=== PATIENT | male | born 1940 | race Caucasian/White ===

== ENCOUNTER → 2017-02-13 | Outpatient (CLI) | payer OTHER, MEDICARE ==
[2017-02-13 13:32] LABS: RATIO 96.5 mcg/mg (0-30.0)
[2017-02-13 13:37] LABS: ALT/SGPT 23 U/L (12-78); BLOOD UREA NITROGEN 37 mg/dl (7-18); BUN/CREATININE RATIO 22.8 (10-20); CALCIUM 9.5 mg/dl (8.5-10.1); CARBON DIOXIDE 24 mmol/L (21-32); CHLORIDE 104 mmol/L (98-107); CHOLESTEROL 137 mg/dl (0-200); GLUCOSE 96 mg/dl (70-99); POTASSIUM 4.3 mmol/L (3.5-5.1); SODIUM 135 mmol/L (136-145); TRIGLYCERIDES 100 mg/dl (0-150); VERY LOW DENSITY LIPOPROT CALC 20 mg/dl
[2017-02-13 13:41] LABS: ESTIMATED AVERAGE GLUCOSE 111 mg/dl; HA1C FLAG Normal (Normal)
[2017-02-13 13:42] LABS: ALB/GLOB RATIO 1.3 (0.9-2); ALKALINE PHOSPHATASE 59 U/L (45-117); AST/SGOT 15 U/L (15-37); CHOLESTEROL/HDL RATIO 3.4; HDL CHOLESTEROL 40 mg/dl; LDL CHOLESTEROL CALCULATED 77 mg/dl
== END | disposition home or self-care (01) ==
LOC: C.LABMFLN 08:25
PROVIDERS: ATTEND Family Medicine
DX: I10 Essential (primary) hypertension (principal); E11.21 Type 2 diabetes mellitus with diabetic nephropathy

== ENCOUNTER → 2017-04-29 | Outpatient (CLI) | payer OTHER, MEDICARE ==
[2017-04-29 13:56] LABS: BLOOD UREA NITROGEN 18 mg/dl (7-18); BUN/CREATININE RATIO 17.7 (10-20); CALCIUM 9.9 mg/dl (8.5-10.1); CARBON DIOXIDE 26 mmol/L (21-32); CHLORIDE 103 mmol/L (98-107); GLUCOSE 105 mg/dl (70-99); POTASSIUM 4.1 mmol/L (3.5-5.1); SODIUM 139 mmol/L (136-145)
== END | disposition home or self-care (01) ==
LOC: C.LABMFLN 08:23
PROVIDERS: ATTEND Family Medicine
DX: I10 Essential (primary) hypertension (principal); N28.9 Disorder of kidney and ureter, unspecified

== ENCOUNTER 2017-07-15 07:49 | Day surgery (SDC) | payer OTHER, MEDICARE ==
[2017-07-01 13:33] VITALS: BMI 23.0
[2017-07-01 13:45] LABS: BASO % 0.4 %; BASO ABS # 0.02 K/uL (0-0.2); COMPLETE YES; HEMATOCRIT 38.4 % (42-52); IG% 0.2 %; LYMPH % 43.1 %; LYMPH ABS # 2.42 K/uL (1.2-3.4); MEAN CELL VOLUME 87.9 fL (80-100); MEAN CORPUSCULAR HEMOGLOBIN 29.7 pg (25-34); MEAN CORPUSCULAR HGB CONC 33.9 g/dl (32-36); MEAN PLATELET VOLUME 9.4 fL (7.4-10.4); MONO % 8.7 %; NEUT % 45.6 %; PLATELET COUNT 183 K/uL (130-400); RED BLOOD COUNT 4.37 M/uL (4.7-6.1); WHITE BLOOD COUNT 5.62 K/uL (4.8-10.8)
--- NOTE | 2017-07-01 13:55 | PAT Medication Instructions ---
Service Date Jul 01, 2017. Current Home Medication List Dutasteride (Avodart), 0.5 MG PO QAM Ferrous Sulfate (Kp Ferrous Sulfate), 1 TAB PO QDL Lisinopril (Zestril), 20 MG PO QAM Metformin Hcl (Glucophage), 1,000 MG PO BID Tamsulosin HCl (Tamsulosin HCl), 1 TAB PO QPM Vitamin B Complex (Vitamin B Complex), 1 TAB PO QPM Medication Instructions For Your Scheduled Surgery - Hold the following medications 48 hours prior to surgery: Metformin Hcl (Glucophage), 1,000 MG PO BID - Hold the following medications the morning of surgery: Lisinopril (Zestril), 20 MG PO QAM - Take the following medications the morning of surgery with a sip of water: Dutasteride (Avodart), 0.5 MG PO QAM - Take the following medications as scheduled the night before surgery: Tamsulosin HCl (Tamsulosin HCl), 1 TAB PO QPM Vitamin B Complex (Vitamin B Complex), 1 TAB PO QPM Ferrous Sulfate (Kp Ferrous Sulfate), 1 TAB PO QDL If you have any questions please call us at [phone] or [phone] or [phone]
[2017-07-01 14:26] LABS: MANUAL MICROSCOPIC REQUIRED? NO; REVIEW REQ? NO; URINE APPEARANCE CLEAR (CLEAR); URINE BILIRUBIN NEG (NEG); URINE COLOR YELLOW; URINE NITRITE NEG (NEG); URINE SPECIFIC GRAVITY 1.016 (1.000-1.030); UROBILINOGEN NEG (NEG)
--- NOTE | 2017-07-01 15:08 | DIAGNOSTIC IMAGING REPORT ---
CHEST 2 VIEWS ROUTINE CLINICAL HISTORY: PAT preoperative evaluation COMPARISON STUDY: No previous studies for comparison. FINDINGS: The bones soft tissues and hemidiaphragms are normal. The cardiomediastinal silhouette is normal. The lungs are clear. The pulmonary vasculature is normal. Several scattered calcified granulomas are noted. IMPRESSION: No acute process. The above report was generated using voice recognition software. It may contain grammatical, syntax or spelling errors. Electronically signed by: Frank Patterson M.D. 07/01/2017 3:06 PM Dictated Date/Time: 07/01/2017 3:06 PM
[2017-07-01 15:18] LABS: CALCIUM 9.1 mg/dl (8.5-10.1); POTASSIUM 4.3 mmol/L (3.5-5.1)
[~2017-07-15] VITALS: Ht 170.2 cm; Wt 67.6 kg
[~2017-07-15 07:49] MED LIST: ATROPINE SULFATE 0.1 MG/ML 5ML SYR IV PRN; CIPROFLOXACIN / D5W 400 MG IV SCH; DUTA0.5C PO; EpHEDrine SULFATE INJ 50 MG/ML AMP IV PRN; FENTANYL CITRATE INJ 50 MCG/1 ML 2 ML VIAL IV PRN; FERR1TAB13 PO; FLM4 PO; LACTATED RINGER'S 1000ML 1,000 ML IV SCH; LISI-725 PO; METF-384 PO; ONDANSETRON INJ 2 MG/ML 2 ML VIAL IV PRN; VITBC PO
[2017-07-15 08:30] VITALS: BP 164/74; PULSE 92; TEMP 36.5; O2SAT 99; Ht 170.2 cm; Wt 67.6 kg
--- NOTE | 2017-07-15 09:19 | History & Physical Bridge Note ---
H&P Re-Evaluation Bridge Note: I have examined the patient, reviewed the History & Physical and in the interval since the performance of the History & Physical I have noted the following changes of clinical significance: No changes noted
[2017-07-15] MEDS ORDERED: CONRAY 30% 150ML BOTTLE ONE (09:29)
[2017-07-15] MEDS ORDERED: LIDOCAINE HCL 2% 2 ML VIAL (20MG/ML) ONE (09:31)
[2017-07-15] MEDS ORDERED: FENTANYL CITRATE INJ 50 MCG/1 ML 2 ML VIAL ONE (09:31)
[2017-07-15] MEDS ORDERED: PROPOFOL IV EMULSION 10 MG/ML 20 ML VIAL IV ONE (09:31)
[2017-07-15] MEDS ORDERED: PHENYLEPHRINE 100MCG/ML 5ML SYR ONE (09:54)
[2017-07-15] MEDS ORDERED: ONDANSETRON INJ 2 MG/ML 2 ML VIAL ONE (09:54)
[2017-07-15] MEDS ORDERED: EpHEDrine SULFATE 50MG/5ML SYR ONE (10:00)
[2017-07-15] MEDS ORDERED: PHEN-876 PO (13:12)
[2017-07-15] MEDS ORDERED: OXYC-57 PO (13:12)
--- NOTE | 2017-07-15 13:13 | Discharge Instructions ---
Discharge Instructions Date of Service Jul 15, 2017. Visit Reason for Visit: Bladder Stone Discharge Discharge Diagnosis / Problem: Bladder Stone Discharge Goals Goal(s): Therapeutic intervention Activity Recommendations Activity Limitations: resume your previous activity (take ir easy today) Exercise/Sports Limitations: rest today Shower/Bathe: no limitations Driving or Machine Use: resume 1 day after discharge Anesthesia . Post Anesthesia Instructions: If you have had General Anesthesia or IV Sedation: * Do not drive today. * Resume driving when surgeon permits. * Do not make important decisions or sign legal documents today. * Call surgeon for: 1. Temperature elevations greater than 101 degrees F. 2. Uncontrollable pain. 3. Excessive bleeding. 4. Persistent nausea and vomiting. 5. Medication intolerance (nausea, vomiting or rash). * For nausea and vomiting use only clear liquids such as: tea, soda, bouillon until nausea subsides, then gradually increase diet as tolerated. * If you have any concerns or questions, call your surgeon's office. If physician is unavailable and it is an emergency, call 911 or go to the nearest emergency room. . Diet Recommendations Recommended Home Diet: resume previous diet Procedures Procedures Performed: Meatal Dilation, Cystolithopaxy Pending Studies Studies pending at discharge: no Medical Emergencies . Who to Call and When: Medical Emergencies: If at any time you feel your situation is an emergency, please call 911 immediately. . Non-Emergent Contact Non-Emergency issues call your: Urologist Call Non-Emergent contact if: temperature is above 101.5 . . "Provider Documentation" section prepared by Zen Lino. . [place] Drug Monitoring Program Search Results: patient reviewed within database
[2017-07-15] MEDS ORDERED: OXYCODONE/ACETAMINOPHEN 5-325 TAB PO PRN (13:15)
--- NOTE | 2017-07-15 13:34 | [facility] Operative Report ---
Operative Report Operative Date Jul 15, 2017. Pre-Operative Diagnosis Bladder Calculus Post-Operative Diagnosis Bladder Calculus Procedure(s) Performed Meatal Dilation, Cystolithopaxy Surgeon Dr. Lino Lifeguard Surgeon(s) none Estimated Blood Loss 3 cc Findings Cystoscopic exam showed a normal anterior urethra prostatic fossa was moderately obstructing with kissing lateral lobes and elevated median lobe bladder showed some edema from a lissette stone calculus the stone was very large and very dense was also 1-2+ trabeculation Specimens none per surgeon Drains none Anesthesia Gen. Complication(s) None Disposition Recovery Room / PACU Indications 76-year-old white male on evaluation for hematuria was found to have a large bladder stone. He is being brought in for cystolitholapaxy Description of Procedure After the induction of an adequate general anesthetic and appropriate timeout patient was placed in the dorsolithotomy position. Lower abdomen genitalia were prepped with Hibiclens draped in sterile fashion. Fossa navicularis was dilated to 28 Canadian with sounds. Routine cystoscopic exam was performed the above-noted findings. Next using a 24 Canadian resectoscope and laser bridge and 1000 holmium laser fiber the stone was fragmented into multiple small pieces. The stone was very dense and the fragmentation took a long time. After fragmenting the stone and evacuating the fragments with an Purchext evacuator bladder was reinspected. There were no sizable fragments left there was some stone dust remaining there was no injury to the bladder. Patient's bladder was then drained resections, which is removed all needle sponges counts were correct at the end of the case. Patient tolerated the procedure was taken recovery room in stable condition I attest to the content of the Intraoperative Record and any orders documented therein. Any exceptions are noted below.
--- NOTE | 2017-07-15 13:41 | Anesthesiology Progress Note ---
Anesthesia Post Op Note Date & Time Jul 15, 2017 at 13:41 Vital Signs Pain Intensity: 0 Vital Signs Past 12 Hours Date Time Temp Pulse Resp B/P (MAP) Pulse Ox O2 Delivery O2 Flow Rate FiO2 07/15/17 13:30 85 17 138/71 100 Oxymask 10 07/15/17 13:20 87 19 145/82 100 Oxymask 10 07/15/17 13:10 36.0 88 16 104/75 100 Oxymask 10 07/15/17 08:30 36.5 92 18 164/74 (104) 99 Room Air Notes Mental Status: alert / awake / arousable, participated in evaluation Pt Amnestic to Procedure: Yes Nausea / Vomiting: adequately controlled Pain: adequately controlled Airway Patency, RR, SpO2: stable & adequate BP & HR: stable & adequate Hydration State: stable & adequate Anesthetic Complications: no major complications apparent
[2017-07-15 13:55] VITALS: BP 150/72; PULSE 82; TEMP 36.3; O2SAT 99
[2017-07-15 14:25] VITALS: BP 146/80; PULSE 83; O2SAT 100
[2017-07-15 14:55] VITALS: BP 146/73; PULSE 82; TEMP 36.3; O2SAT 97
== END 2017-07-15 15:38 | disposition home or self-care (01) ==
LOC: C.ACU 07:49
PROVIDERS: ATTEND Urology
DX: N21.0 Calculus in bladder (principal); I10 Essential (primary) hypertension; N40.0 Benign prostatic hyperplasia without lower urinary tract symptoms; K21.9 Gastro-esophageal reflux disease without esophagitis; E11.9 Type 2 diabetes mellitus without complications; Z90.49 Acquired absence of other specified parts of digestive tract; Z90.89 Acquired absence of other organs; Z87.891 Personal history of nicotine dependence; Z79.84 Long term (current) use of oral hypoglycemic drugs; Z87.442 Personal history of urinary calculi

== ENCOUNTER → 2017-09-06 | Outpatient (CLI) | payer OTHER, MEDICARE ==
[~2017-09-06] MED LIST changes: -ATROPINE SULFATE 0.1 MG/ML 5ML SYR IV PRN; -CIPROFLOXACIN / D5W 400 MG IV SCH; -EpHEDrine SULFATE INJ 50 MG/ML AMP IV PRN; -FENTANYL CITRATE INJ 50 MCG/1 ML 2 ML VIAL IV PRN; -LACTATED RINGER'S 1000ML 1,000 ML IV SCH; -ONDANSETRON INJ 2 MG/ML 2 ML VIAL IV PRN; +OXYC-57 PO; +PHEN-876 PO
[2017-09-06 13:25] LABS: HEMOGLOBIN A1C 5.5 % (4.5-5.6)
[2017-09-06 13:52] LABS: ALT/SGPT 25 U/L (12-78); BLOOD UREA NITROGEN 18 mg/dl (7-18); CARBON DIOXIDE 27 mmol/L (21-32); CHOLESTEROL 132 mg/dl (0-200); CREATININE 0.98 mg/dl (0.60-1.40); GLUCOSE 105 mg/dl (70-99); SODIUM 135 mmol/L (136-145)
[2017-09-06 13:56] LABS: ALKALINE PHOSPHATASE 58 U/L (45-117); AST/SGOT 15 U/L (15-37); LDL CHOLESTEROL CALCULATED 54 mg/dl; TOTAL PROTEIN 7.4 gm/dl (6.4-8.2)
== END | disposition home or self-care (01) ==
LOC: C.LABMFLN 07:27
PROVIDERS: ATTEND Family Medicine
DX: E11.29 Type 2 diabetes mellitus with other diabetic kidney complication (principal); I10 Essential (primary) hypertension; E11.21 Type 2 diabetes mellitus with diabetic nephropathy; N40.0 Benign prostatic hyperplasia without lower urinary tract symptoms

== ENCOUNTER → 2018-02-14 | Outpatient (CLI) | payer OTHER, MEDICARE ==
[~2018-02-14] MED LIST changes: -OXYC-57 PO; -PHEN-876 PO
[2018-02-14 13:15] LABS: HEMOGLOBIN A1C 5.6 % (4.5-5.6)
[2018-02-14 13:23] LABS: ALKALINE PHOSPHATASE 59 U/L (45-117); ALT/SGPT 23 U/L (12-78); AST/SGOT 15 U/L (15-37); BLOOD UREA NITROGEN 17 mg/dl (7-18); CALCIUM 8.5 mg/dl (8.5-10.1); CARBON DIOXIDE 25 mmol/L (21-32); CHOLESTEROL 117 mg/dl (0-200); CREATININE 1.03 mg/dl (0.60-1.40); GLUCOSE 88 mg/dl (70-99); LDL CHOLESTEROL CALCULATED 57 mg/dl; POTASSIUM 3.6 mmol/L (3.5-5.1); SODIUM 138 mmol/L (136-145); TOTAL PROTEIN 7.1 gm/dl (6.4-8.2)
== END | disposition home or self-care (01) ==
LOC: C.LABMFLN 08:19
PROVIDERS: ATTEND Family Medicine
DX: E11.29 Type 2 diabetes mellitus with other diabetic kidney complication (principal); I10 Essential (primary) hypertension